=== PATIENT | female | born 1985 | race Caucasian/White ===

== ENCOUNTER 2018-09-08 11:15 | Emergency (ER) | payer OTHER, SELFPAY ==
[2018-09-08 11:16] VITALS: BP 131/95; PULSE 72; RESP 18; TEMP 36.8; O2SAT 100; BMI 32.8
[2018-09-08] MEDS: Acetaminophen 325 MG Tablet 650 MG PO (11:37)
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
--- NOTE | 2018-09-08 11:44 | ED.DEP ---
ED Disposition - Plan for ED Patient: Disposition: Home or Assisted Living Chief Complaint: Head Injury Instructions: ED Head Injury Closed Referrals: Brandie Tanner PA-C [Primary Care Provider] -
[2018-09-08 11:51] VITALS: RESP 14
== END 2018-09-08 12:02 | disposition home or self-care (01) ==
LOC: ED 11:57
PROVIDERS: Emergency Provider Emergency Medicine; Family Provider Family Medicine; PCP Family Medicine
DX: S09.90XA Unspecified injury of head, initial encounter (principal); R40.2410 Glasgow coma scale score 13-15, unspecified time; W22.8XXA Striking against or struck by other objects, initial encounter; Y93.9 Activity, unspecified; Y92.9 Unspecified place or not applicable
CPT/HCPCS: 99283

== ENCOUNTER → 2018-12-22 08:30 | Outpatient (CLI) | payer OTHER, SELFPAY ==
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
== END ==
PROVIDERS: Family Provider Family Medicine; PCP Family Medicine; Referring Provider Family Medicine; Visit Provider Family Medicine
DX: R51 Headache (principal); V89.2XXA Person injured in unspecified motor-vehicle accident, traffic, initial encounter
CPT/HCPCS: 70450; 72050

== ENCOUNTER → 2019-07-28 13:42 | Outpatient (CLI) | payer OTHER, SELFPAY ==
[2019-07-28 15:13] LABS: Free T3 2.6 pg/mL (2.18-3.98); T4 Free Direct 1.03 ng/dL (0.76-1.46); Thyroid Stim Hormone (TSH) 1.03 uIU/mL (0.358-3.74)
[2019-07-31 21:09] LABS: Thyroid Peroxidase AB 12 IU/mL (0-34)
[2019-08-01 16:47] LABS: Thyroglobulin Antibody < 1.0 IU/mL (0.0-0.9)
== END ==
PROVIDERS: Family Provider Family Medicine; PCP Family Medicine; Referring Provider Family Medicine; Visit Provider Family Medicine
DX: E04.1 Nontoxic single thyroid nodule (principal)
CPT/HCPCS: 36415; 84439; 84443; 84481; 86376; 86800

== ENCOUNTER 2020-09-23 13:16 | Emergency (ER) | payer OTHER, SELFPAY ==
[2020-09-23 13:17] VITALS: BP 147/90; PULSE 84; RESP 18; TEMP 36.8; O2SAT 100; BMI 30.9
--- NOTE | 2020-09-23 13:51 | ED.DCSUM_ITS ---
History of Present Illness Chief Complaint: Back Informant: Patient Onset: Today Context: Sudden Onset Injury: Bending Timing: Continuous Quality: Aching Location: Lumbar - right side. no radiation. Current Severity: Moderate Maximum Severity: Moderate Worsened by: improves with: Movement Relieved by: Remaining Still Associated Symptoms: - - No numbness, radiation to leg, abdominal pain, bowel or bladder dysfunction. Able to ambulate but with pain. 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 Occurred today couple hours ago. Past Medical History - Allergies and Home Meds Allergies/Adverse Reactions: Allergies hydrocodone Adverse Reaction (Verified 09/08/18 11:16) Upset Stomach Primary Care Physician: Brandie Tanner PA-C [Primary Care Provider] - Past Medical History: None Smoking Status: Never smoker Review of Systems General: Denies: Chills, Fever, Sweats Musculoskeletal: Reports: Back pain. Denies: Swelling, Extremity Pain Skin: Denies: Rash, Wounds Neurological: Denies: Headache, Weakness, Numbness Physical Exam Vital Signs/Narrative: Vital Signs Temp Pulse Resp BP Pulse Ox 09/23/20 13:17 98.2 F 84 18 147/90 H 100 Inital Vital Signs reviewed: Yes General: Well nourished, Well developed, - - Well-appearing no distress Respiratory: No distress Back: Normal Inspection, Negative SLR - Right, Negative SLR - Left, - - Patient having pain at the area of the right SI joint. No tenderness able to be reproduced on palpation. Able to sit up without difficulty or worsening pain. No length discrepancy in lower extremities. Negative for: Spinal tenderness, Paraspinal Tenderness, CVA tenderness Extremeties: Nontender, No edema Skin: Normal color, No rash Neuro: Alert, Oriented, Normal Strength, Normal Sensation, Normal DTR, Normal Gait - Antalgic Psychological: Normal affect, Normal Mood Diagnostic/Tx/Re-eval - Medical Decision Making Patient declines x-rays, I agree they are unlikely to be helpful at this time and can always be obtained later if needed. SI joint dysfunction is in the differential diagnosis. She was given Toradol for pain. She is driving home 45 minutes and has adverse reactions to [place], so further analgesics were avoided. She was given a day off and lifting restrictions and follow-up. ED Disposition - Plan for ED Patient: Disposition: Home or Assisted Living Diagnosis: Acute lumbar myofascial strain Instructions: ED LUMBAR SPRAIN/STRAIN Referrals: [facility] [GROUP OF PHYSICIANS] - 1-2 Days if not improving
[2020-09-23] MEDS: Ketorolac 60 MG/2 ML Vial IM (14:18)
[2020-09-23 14:48] VITALS: BP 141/96; RESP 17
== END 2020-09-23 14:53 | disposition home or self-care (01) ==
LOC: ED 13:57
PROVIDERS: Emergency Provider Emergency Medicine; PCP Family Medicine
DX: S39.012A Strain of muscle, fascia and tendon of lower back, initial encounter (principal); X50.1XXA Overexertion from prolonged static or awkward postures, initial encounter; Y93.9 Activity, unspecified; Y92.239 Unspecified place in hospital as the place of occurrence of the external cause; Y99.0 Civilian activity done for income or pay
CPT/HCPCS: 96372; 99282

== ENCOUNTER 2022-01-27 15:06 | Outpatient (CLI) | payer OTHER, SELFPAY ==
[2022-01-27 16:50] LABS: Erythrocyte Sedimentation Rate 2 mm/hr (0-30)
[2022-01-27 16:51] LABS: Hematocrit 42.5 % (37-47); Hemoglobin 14.6 g/dL (12.0-15.0); Mean Corp Hgb Conc 34.4 g/dL (32-36); Mean Corpuscular Hgb 30.2 pg (27.0-32.0); Mean Platelet Vol. 9.8 fl (6.2-12.0); Platelet Count 296 K/mm3 (150-450); RBC Distribution Width CV 13.6 % (11.6-14.6); RBC Distribution Width SD 43.5 fl (35.1-43.9); Red Blood Count 4.83 M/mm3 (4.2-5.4)
[2022-01-27 17:04] LABS: AST(SGOT) 12 U/L (15-37); Alanine Aminotransfer ALT/SGPT 23 U/L (13-56); Alkaline Phosphatase 51 U/L (45-117); Anion Gap 4 (5-15); BUN 20 mg/dL (7-18); BUN/Creat Ratio 26.7 RATIO (10-20); CRP < 2.90 mg/L (0.0-3.0); Chloride 102 mmol/L (98-107); Creatinine, Serum 0.75 mg/dL (0.55-1.02); EST Glomerular Filtration Rate 92 mL/min (>60); Est Glom Filt Rate - Afr Amer 111 mL/min (>60); Glucose 101 mg/dL (74-106); Potassium 3.8 mmol/L (3.5-5.1); Rheumatoid Factor < 10.0 IU/mL (<15); Sodium Level 135 mmol/L (136-145)
[2022-01-29 14:51] LABS: ANTINUCLEAR ANTIBODIES DIRECT Negative (Negative)
== END 2022-01-27 23:59 | disposition home or self-care (01) ==
LOC: LAB 15:07
PROVIDERS: PCP Family Medicine; Referring Provider Family Medicine; Visit Provider Family Medicine
DX: L30.9 Dermatitis, unspecified (principal)
CPT/HCPCS: 36415; 80053; 85027; 85652; 86038; 86140; 86431

== ENCOUNTER 2022-11-17 14:18 | Day surgery (SDC) | payer OTHER, SELFPAY ==
[2022-11-17] VITALS (7 sets, daily range): BP systolic 100–115; BP diastolic 62–85; PULSE 68–89; RESP 16; TEMP 36.4–37.2; O2SAT 98–100; BMI 31.8
--- NOTE | 2022-11-17 14:41 | PCM.HP.BLA ---
History and Physical Date of Admission: 11/17/22 Chief Complaint: stomach discomfort Details: JOSE GARCIA, is a 36 F who presents to the office today for 6 months of stomach discomfort, heartburn and burping. Started suddenly in March 2022. Stomach angry. Also has bloating. No CP or abd pain. No acid reflux or regurgitation. No dysphagia. No sore throat or hoarse voice. Normal appetite. Initially gained weight since she ate more to try to soothe her stomach. No early satiety. Omeprazole 20 mg and TUMS didn't help. So increased to omeprazole 40 mg daily, that gave some relief, went off it after 2 months, within 2 wks her symptoms were back so she resumed it. Gets heartburn if she misses a dose of PPI. No bowel changes or concerns. No diarrhea, constipation, melena, hematochezia. Hx cholecystectomy in 2008 She works in [employer] Const Constitutional: No fatigue ENT ENT: No difficulty swallowing Gastro GI: Positive for heartburn; No abdominal pain, belching, bloating, change in bowel habits, change in stool character, coffee ground emesis, constipation, cramping, diarrhea, difficulty swallowing, feeling full early, excessive flatus, incontinent of stools, Vomiting blood/hematemesis, Blood in stool, loose stools, Black,tarry stools, nausea/dyspepsia, pain with swallowing, vomiting or other Musc Musculoskeletal: No joint pain Skin Skin: No yellowing of the eye or itchy eyes Psych Psychiatric: No anxiety and No depression Endo Endocrine: No fatigue Aller/Imm Allergy/Immunologic: No itchy eyes Tony/Lymp Hematologic/Lymphatic: No easy bleeding or easy bruising Exam Const General: cooperative, healthy appearing and comfortable Orientation: alert, awake and oriented x3 HENMT Head: normal to inspection Eyes Sclera: sclerae normal Resp Effort & Inspection: normal respiratory effort GI Inspection: normal to inspection Palpation: soft, no hepatosplenomegaly, no masses and nontender Skin General: no rashes or lesions noted Neuro Gait: normal gait Quality Reporting Tobacco Screening ([facility]) Smoking Status: Never smoker Assessment and Plan Assessment and Plan (1) Dyspepsia: ?Status:?Acute ?Plan: 36 yr old female with heartburn, stomach upset, belching, bloating. DDx includes functional dyspepsia, SIBO, gastritis, H pylori, bile acid reflux, PUD. Continue omeprazole 40 mg daily, add sucralfate 1 g tid Scheduled for EGD with f/u 2 wks later in office ? ? ? Medications: New sucralfate 1 g? PO QAC 90 tabs 0RF ? ? Discontinued doxycycline monohydrate ?? Discontinued Reason:? Order Completed 100 mg? PO BID 28 caps 0RF ? ? methylprednisolone (Medrol (Estiven)) ?? per package instructions ?? Discontinued Reason:? Ordered/Entered in error 4 mg? PO DAILY 21 tabs 0RF ? ? I have examined the patient and the H&P has been reviewed. There are no clinical changes since date of exam.
[2022-11-17] MEDS: Lactated Ringers 1,000 ML 15 ML IV (14:46)
[2022-11-17 14:52] LABS: Internal QC Validated? YES +Cl - CLEAR BKGD; Pregnancy, Urine Negative Negative
--- NOTE | 2022-11-17 15:30 | IMM_PTH ---
PATIENT: JOSE GARCIA LOC: EN U#:[id number] AGE/SX: 36/F ROOM: RE11/17/[address]: Dr. James Kendall DO : 1985 BED: DIS: 11/17/2022 SPEC #: [id number] RECD: 11/18/22 09:27 STATUS: AGUSTIN REPratima #: [id number] EDELMIRA: 11/17/22 15:[address]: James Kendall DEPT: IMMUNOHISTOCHEMISTRY RECD BY: Lynda Crowell ENTERED: 11/18/22 09:28 SP TYPE: IMMUNO OTHR DR: Brandie Tanner PA-C Tissues: B - Stomach, NOS Procedures: H Pylori (initial) PHYSICIAN & INSTITUTION [place] [id number] SPECIMEN INFORMATION: Tissue Source: B ? Gastric body biopsy Clinical Info: Dyspepsia Specimen Number: [id number] CPT code: 55746 METHODOLOGY: Deparaffinized sections of prefer/formalin-fixed tissue or PAP/DQ stained slides are incubated with monoclonal/polyclonal antibodies/oligonucleotide probes. Localization is made via biotin free immunoperoxidase method. Appropriate controls are performed and reacted as expected. Results on target cell population are indicated in the following table: RESULTS: ANTIBODY / CLONE RESULT Block B H Pylori (polyclonal) negative These tests were developed and their performance characteristics determined by [facility]. They may not have been cleared or approved by the U.S. Food and Drug Administration. The FDA has determined that such clearance or approval is not necessary. The above immunohistochemical/dualISH markers are ordered and reviewed by the Pathologist. INTERPRETATION: B. Gastric body, biopsy: Negative for Helicobacter pylori organisms. SJ:vanessa 11/19/2022
--- NOTE | 2022-11-17 15:30 | EGD_PTH ---
PATIENT: JOSE GARCIA LOC: EN U#:[id number] AGE/SX: 36/F ROOM: RE11/17/[address]: Dr. James Kendall DO : 1985 BED: DIS: 11/17/2022 SPEC #: [id number] RECD: 11/17/22 16:43 STATUS: AGUSTIN AMISHA #: [id number] EDELMIRA: 11/17/22 15:[address]: James Kendall DEPT: SURGICAL PATHOLOGY RECD BY: Connie Morrissey ENTERED: 11/18/22 07:26 SP TYPE: EGD BIOPSY MADAY DR: Brandie Tanner PA-C Tissues: A - Gastric mucous membrane B - Gastric mucous membrane C - Duodenum, NOS Procedures: Surgery Specimen Level IV HEADER OPERATION: EGD ([facility] [place]) with biopsies PRE-OP DIAGNOSIS: Dyspepsia TISSUE SUBMITTED: A ? Gastric cardia biopsy, B ? Gastric body biopsy, C ? Duodenum biopsy MICROSCOPIC DIAGNOSIS A. Gastric cardia, biopsy: Mild gastritis. See microscopic description. B. Gastric body, biopsy: Mild gastritis. See microscopic description and comment. C. Duodenum, biopsy: Fragments of duodenal mucosa, no pathologic diagnosis. SJ:vanessa 11/19/2022 COMMENT B. The results of immunohistochemistry for Helicobacter pylori will be reported separately ([id number]). MICROSCOPIC DESCRIPTION Slides are reviewed. A & B. The specimen shows fragments of gastric mucosa with chronic inflammatory cell infiltrates in the lamina propria consisting of lymphocytes and plasma cells, consistent with mild chronic gastritis. GROSS DESCRIPTION A - Received in fixative is one container labeled with the patient's name and designated gastric cardia biopsy. The specimen consists of multiple irregular fragments of light cota soft tissue that in aggregate measure 1 x 0.2 x 0.1 cm. The specimen is totally submitted in one cassette. B - Received in fixative is one container labeled with the patient's name and designated gastric body biopsy. The specimen consists of one irregular fragment of light cota soft tissue that measures 0.6 x 0.5 x 0.1 cm. The specimen is totally submitted in one cassette. C - Received in fixative is one container labeled with the patient's name and designated duodenum biopsy. The specimen consists of two irregular fragments of light cota soft tissue that in aggregate measure 0.7 x 0.5 x 0.1 cm. The specimen is totally submitted in one cassette. / AM:vanessa 11/18/2022 TC:3 CPT: 88645 x3
--- NOTE | 2022-11-17 16:36 | OP.EGD_ITS ---
Patient Name: Lloyd Mack Procedure Date: 11/17/2022 4:13 PM Date of : 1985 Age: 36 Procedure: Upper GI endoscopy Indications: Epigastric abdominal pain, Dyspepsia Providers: James Kendall DO Referring MD: Brandie Tanner Medicines: Monitored Anesthesia Care Patient Profile: This is a 36 year old female. Refer to note in patient chart for documentation of history and physical. Complications: No immediate complications. Procedure: Pre-Anesthesia Assessment: - Prior to the procedure, a History and Physical was performed, and patient medications and allergies were reviewed. The risks and benefits of the procedure and the sedation options and risks were discussed with the patient. All questions were answered and informed consent was obtained. Patient identification and proposed procedure were verified by the physician. Mental Status Examination: normal. Prophylactic Antibiotics: The patient does not require prophylactic antibiotics. Prior Anticoagulants: The patient has taken no previous anticoagulant or antiplatelet agents. ASA Grade Assessment: II - A patient with mild systemic disease. After reviewing the risks and benefits, the patient was deemed in satisfactory condition to undergo the procedure. The anesthesia plan was to use monitored anesthesia care (MAC). Immediately prior to administration of medications, the patient was re-assessed for adequacy to receive sedatives. The heart rate, respiratory rate, oxygen saturations, blood pressure, adequacy of pulmonary ventilation, and response to care were monitored throughout the procedure. The physical status of the patient was re-assessed after the procedure. After obtaining informed consent, the endoscope was passed under direct vision. Throughout the procedure, the patient's blood pressure, pulse, and oxygen saturations were monitored continuously. The gastroscope was introduced through the mouth, and advanced to the second part of duodenum. The upper GI endoscopy was accomplished without difficulty. The patient tolerated the procedure well. Scope In: 4:26:38 PM Scope Out: 4:29:38 PM Total Procedure Duration Time 0 hours 3 minutes 0 seconds Findings: The examined esophagus was normal. Diffuse moderately erythematous mucosa without bleeding was found in the cardia, in the gastric body, on the anterior wall of the stomach and on the greater curvature of the stomach. Biopsies were taken with a cold forceps for histology. Verification of patient identification for the specimen was done. Estimated blood loss was minimal. Diffuse moderate inflammation characterized by erosions and friability was found in the entire examined stomach. Biopsies were taken with a cold forceps for histology. Verification of patient identification for the specimen was done. The duodenal bulb, first portion of the duodenum and second portion of the duodenum were normal. Biopsies were taken with a cold forceps for histology. Verification of patient identification for the specimen was done. Estimated blood loss was minimal. Impression: - Normal esophagus. - Erythematous mucosa in the cardia, gastric body, anterior wall of the stomach and greater curvature. Biopsied. - Gastritis. Biopsied. - Normal duodenal bulb, first portion of the duodenum and second portion of the duodenum. Biopsied. Recommendation: - Discharge patient to home. - Resume previous diet. - Continue present medications. - Await pathology results. Procedure Code(s): --- Professional --- 47522, Esophagogastroduodenoscopy, flexible, transoral; with biopsy, single or multiple CPT copyright 2017 [employer]. All rights reserved. The codes documented in this report are preliminary and upon fitter type bar and segment review may be revised to meet current compliance requirements. James Kendall DO 11/17/2022 4:35:46 PM This report has been signed electronically. Number of Addenda: 0 Note Initiated On: 11/17/2022 4:13 PM
--- NOTE | 2022-11-17 16:36 | OP.CCLET_ITS ---
11/17/2022 [facility] Re : Upper GI endoscopy procedure for Lloyd Tanner This procedure was performed on Thursday, November 17, 2022. My impressions and recommendations are as follows: Impressions : - Normal esophagus. - Erythematous mucosa in the cardia, gastric body, anterior wall of the stomach and greater curvature. Biopsied. - Gastritis. Biopsied. - Normal duodenal bulb, first portion of the duodenum and second portion of the duodenum. Biopsied. Recommendations : - Discharge patient to home. - Resume previous diet. - Continue present medications. - Await pathology results. My findings are described in the full procedure note, which is enclosed. If I can be of further assistance, please feel free to contact me at . Sincerely, James Kendall, 11/17/2022 4:35:46 PM This report has been signed electronically.
== END 2022-11-17 17:32 | disposition home or self-care (01) ==
LOC: EN 14:19 → AC 14:24
PROVIDERS: Anesthesiology; PCP Family Medicine; Referring Provider Family Medicine; Visit Provider Internal Medicine Gastroenterology
PROC: 0DJ08ZZ Inspection of Upper Intestinal Tract, Via Natural or Artificial Opening Endoscopic (ICD-10-PCS; CPT 43235; principal; 2022-11-17 15:25)
DX: K29.70 Gastritis, unspecified, without bleeding (principal)
CPT/HCPCS: 43239; 81025; 88305; 88342; J7120; J2405

== ENCOUNTER → 2022-12-01 | Outpatient (CLI) | payer OTHER, SELFPAY ==
--- NOTE | 2022-12-01 06:01 | NM_ITS ---
CLINICAL: 28-year-old female with history of suspected clinical gastroparesis. SEMI-SOLID PHASE 99m Tc SULFUR COLLOID GASTRIC EMPTYING STUDY COMPARISON: None available FINDINGS: The patient was administered 1.1 mCi of 99m Tc sulfur colloid mixed with oatmeal and consumed per os. Image acquisitions in the anterior-posterior projections were obtained for 60 minutes. There is prompt visualization of the stomach. There is no gastroesophageal reflux identified. The T ? raw data emptying was calculated to be 30.13 minutes, (Normal: 12-56 minutes). NM/Gastric Emptying Study IMPRESSION: 1. NORMAL 99m Tc sulfur colloid semi-solid phase (oatmeal) gastric emptying imaging examination. A. There is normal and preserved semi-solid phase gastric emptying compared to normal controls. (Yamilex et al, J Nucl Med Tech 38: 186, 2010). Electronically Signed: Nicolás Greco, at 14:17 EST ,
== END | disposition home or self-care (01) ==
LOC: NM 05:59
PROVIDERS: PCP Family Medicine; Visit Provider Nurse Practitioner Adult Health
DX: K29.60 Other gastritis without bleeding (principal)
CPT/HCPCS: 78264; A9541

== ENCOUNTER → 2024-07-13 | Outpatient (CLI) | payer OTHER, SELFPAY ==
--- NOTE | 2024-07-13 14:11 | BI_ITS ---
MAMMOGRAPHY - BILATERAL SCREENING REASON FOR EXAM: Female, 38 years old. Routine annual screening examination. PERTINENT HISTORY: Aunt with breast cancer. TECHNIQUE: Digital bilateral breast trip (3D mammographic acquisition) in the CC and MLO projections. 2-D mediolateral oblique (MLO) and craniocaudad (CC) views of both breasts were obtained. CAD: Full Field Digital Mammography with Computer Added Detection was performed. COMPARISON: None. Baseline examination. FINDINGS: Breast Composition: The breasts are heterogeneously dense, which may obscure small masses. There are no dominant masses or suspicious calcifications. Small benign-appearing bilateral axillary lymph nodes. No other significant abnormalities are identified. BI/SCRN MAMM (CAD)W/TRIP BILAT IMPRESSION: Negative screening mammogram. Yearly followup mammogram recommended. (A) ASSESSMENT CATEGORY: BIRADS Category 2: Benign. A letter regarding these results will be sent to the patient by the facility within 30 days. Approximately 10% of breast cancers are not detected by mammography. A normal mammogram should not delay biopsy of a clinically suspicious abnormality. [id number] Electronically Signed: Joshua Merlos MD at 15:00 EDT ,
== END | disposition home or self-care (01) ==
LOC: OPBI 14:10
PROVIDERS: PCP Family Medicine; Referring Provider Family Medicine; Visit Provider Family Medicine
DX: Z12.31 Encounter for screening mammogram for malignant neoplasm of breast (principal)
CPT/HCPCS: 77063; 77067

== ENCOUNTER → 2025-07-19 | Outpatient (CLI) | payer OTHER, SELFPAY | END | disposition home or self-care (01) | PROVIDERS: PCP Family Medicine; Referring Provider Family Medicine; Visit Provider Family Medicine | DX: Z12.31 Encounter for screening mammogram for malignant neoplasm of breast (principal) ==

== ENCOUNTER → 2025-08-09 | Outpatient (CLI) | payer OTHER, SELFPAY ==
[2025-08-09 16:05] LABS: Free T3 3.0 pg/mL (2.18-3.98); Vitamin D,25 Hydroxy 29.9 ng/mL (30-100)
[2025-08-13 19:08] LABS: Thyroglobulin, Serum Qt. 12.6 ng/mL (1.5-38.5)
== END | disposition home or self-care (01) ==
LOC: LAB 14:15
PROVIDERS: PCP Family Medicine; Referring Provider Family Medicine; Visit Provider Family Medicine
DX: R53.83 Other fatigue (principal)
CPT/HCPCS: 36415; 82306; 84432; 84439; 84443; 84481; 86800

== ENCOUNTER → 2025-09-18 | Outpatient (CLI) | payer OTHER, SELFPAY ==
[2025-09-18 15:07] LABS: Hematocrit 40.2 % (37-47); Hemoglobin 13.3 g/dL (12.0-15.0); Immature Granulocytes Count 0.020 X10^3/uL (0.0-0.0); Mean Corp Hgb Conc 33.1 g/dL (32-36); Mean Corpuscular Volume 85.4 fL (81-99); Mean Platelet Vol. 9.2 fl (6.2-12.0); NRBC Flagged by Analyzer 0 % (0-5); Platelet Count 323 K/mm3 (150-450); RBC Distribution Width CV 13.4 % (11.6-14.6); RBC Distribution Width SD 41.5 fl (35.1-43.9); Red Blood Count 4.71 M/mm3 (4.2-5.4); White Blood Count 9.1 K/mm3 (4.4-11.0)
[2025-09-18 15:58] LABS: AST(SGOT) 20 U/L (<=31); Alanine Aminotransfer ALT/SGPT 21 U/L (<=34); Albumin, Serum 4.5 g/dL (3.5-5.0); Alkaline Phosphatase 78 U/L (35-104); Anion Gap 12 (5-15); BUN 14 mg/dL (4-19); BUN/Creat Ratio 19.2 RATIO (10-20); Calcium,Total 9.6 mg/dL (7.6-11.0); Carbon Dioxide 24.1 mmol/L (21.0-32.0); Chloride 101 mmol/L (98-108); Ferritin 70 ng/mL (22-378); Follicle Stimulating Hormone 5.8 mIU/mL; Free T3 2.8 pg/mL (2.18-3.98); Globulin 3.8 g/dL (2.2-4.2); Glucose 93 mg/dL (70-99); Potassium 4.0 mmol/L (3.3-5.1); Vitamin B12 838 pg/mL (180-914); Vitamin D,25 Hydroxy 40.7 ng/mL (30-100)
== END | disposition home or self-care (01) ==
LOC: MTLAB 13:09
PROVIDERS: PCP Family Medicine; Referring Provider Nurse Practitioner Family; Visit Provider Nurse Practitioner Family
DX: E66.89 Other obesity not elsewhere classified (principal); R53.82 Chronic fatigue, unspecified; F41.1 Generalized anxiety disorder
CPT/HCPCS: 36415; 80053; 82306; 82607; 82670; 82728; 83001; 84144; 84270; 84402; 84403; 84439; 84443; 84481; 85025; 86376